=== PATIENT | female | born 1960 | race Caucasian/White ===

== ENCOUNTER → 2025-09-07 15:47 | Outpatient (REF) | payer OTHER, SELFPAY | LOC: HWRCS 15:47 | PROVIDERS: ATTENDING PHYSICIAN Student in an Organized Health Care Education/Training Program; FAMILY PHYSICIAN Family Medicine | DX: R94.31 Abnormal electrocardiogram [ECG] [EKG] (principal) | CPT/HCPCS: 93306 ==